=== PATIENT | female | born 1965 | race Caucasian/White ===

== ENCOUNTER 2022-05-30 20:14 | Emergency (ER) | payer OTHER ==
[~2022-05-30] VITALS: Ht 167.6 cm; Wt 69.0 kg
[2022-05-30 20:51] LABS: BASOPHILS ABSOLUTE AUTO 0.06 K/mm3 (0.00-0.23); BASOPHILS PERCENT AUTO 1 % (0-2); EOSINOPHILS ABSOLUTE AUTO 0.14 K/mm3 (0.00-0.68); EOSINOPHILS PERCENT AUTO 2 % (0-6); Hematocrit 36.5 % (33.0-51.0); Hemoglobin 12.5 g/dL (11.5-16.0); IMMATURE GRAN ABSOLUTE AUTO 0.02 K/mm3 (0.00-0.10); IMMATURE GRAN PERCENT AUTO 0 % (0-1); LYMPHOCYTES ABSOLUTE AUTO 3.83 K/mm3 (0.84-5.20); LYMPHOCYTES PERCENT AUTO 43 % (21-46); MONOCYTES ABSOLUTE AUTO 0.63 K/mm3 (0.16-1.47); MONOCYTES PERCENT AUTO 7 % (4-13); Mean Corpuscular HGB 30.4 pg (26.0-34.0); Mean Corpuscular HGB Conc 34.2 g/dL (31.5-36.5); Mean Corpuscular Volume 89 fL (80-100); Mean Platelet Volume 11.2 fL (9.1-12.4); NEUTROPHILS ABSOLUTE AUTO 4.16 K/mm3 (1.96-9.15); NEUTROPHILS PERCENT AUTO 47 % (41-73); Platelet Count 224 K/mm3 (150-400); RDW Coefficient Variation 13.1 % (11.7-14.2); RDW Standard Deviation 43.2 fL (35.1-46.3); Red Blood Cell Count 4.11 M/mm3 (3.80-5.20); White Blood Cell Count 8.84 K/mm3 (4.00-11.30)
[2022-05-30 21:09] LABS: Albumin, Blood 4.2 g/dL (3.4-5.0); Albumin/Globulin Ratio 1.3 (0.8-1.8); Bilirubin, Total 0.4 mg/dL (0.1-1.0); Bun/Creatinine Ratio 9.7 (12.0-20.0); Calcium, Blood 9.2 mg/dL (8.5-10.1); Creatinine, Blood 0.93 mg/dL (0.40-1.00); Globulin, Blood 3.3 g/dL (2.2-4.0); Potassium, Blood 3.1 mmol/L (3.5-5.5); Total Protein, Blood 7.5 g/dL (6.4-8.2)
== END 2022-05-30 22:37 | disposition home or self-care (01) ==
LOC: ER 20:14
PROVIDERS: Student in an Organized Health Care Education/Training Program
DX: N83.202 Unspecified ovarian cyst, left side (principal)
CPT/HCPCS: 36415; 76830; 76856; 80053; 83690; 85025; 96374; 96375; 99284-25; A9270; J1170; J2405; J7030

== ENCOUNTER 2022-06-13 12:30 | Day surgery (SDC) | payer OTHER ==
[~2022-06-13] VITALS: Ht 167.6 cm; Wt 74.2 kg
[~2022-06-13 12:30] MED LIST: GABA300 PO; HYDACE10B PO; TIZA4 PO
--- NOTE | 2022-06-13 17:32 | NUR ---
1700 TO ROOM FROM PACU, PT ASSISTED TO BATHROOM AND VOIDED CLEAR YELLOW URINE. PT REPORTS HAS FEELING OF PRESSURE IN RECTAL AND VAGINAL AREA BUT STATES NOT PAIN. ABD LAP SITES X4 WITH WOUND GLUE INTACT. NO DRAINAGE. PT DENIES NAUSEA. LUNGS CLEAR, NO SOB
[2022-06-13] MEDS ORDERED: ACET325 PO (18:31)
[2022-06-13] MEDS ORDERED: IBUP800 PO (18:32)
[2022-06-13] MEDS ORDERED: DOCU100 PO (18:36)
--- NOTE | 2022-06-13 22:24 | NUR ---
DISCHARGE PT HAS VOIDED MULTIPLE TIMES, CLEAR PINK TINGED URINE. PAIN AND NAUSEA CONTROLLED WITH ORDERED MEDICATIONS. TOLERATING PO AND AMBULATING INDEPENDENTLY. PROVIDED WITH DISCHARGE INSTRUCTION R/T HYSTERECTOMY. 2 IV'S REMOVED FROM R ARM PRIOR TO DISCHARGE. PT ESCORTED BY WHEELCHAIR BY DEBBIE SANTACRUZ OUT TO PT'S CAR. TO DRIVE PT HOME.
== END 2022-06-13 22:25 | disposition home or self-care (01) ==
LOC: ORSCMMR 12:30 → ORD 14:00 → ORSCMMR 14:00 → SURS 16:52 → ORSCMMR 22:25
PROVIDERS: Obstetrics & Gynecology
PROC: 8E0W4CZ Robotic Assisted Procedure of Trunk Region, Percutaneous Endoscopic Approach (ICD-10-PCS; principal; 2022-06-13 14:00)
PROC: 0UT74ZZ Resection of Bilateral Fallopian Tubes, Percutaneous Endoscopic Approach (ICD-10-PCS; principal; 2022-06-13 14:00)
PROC: 0UT94ZZ Resection of Uterus, Percutaneous Endoscopic Approach (ICD-10-PCS; principal; 2022-06-13 14:00)
PROC: 0UB24ZZ Excision of Bilateral Ovaries, Percutaneous Endoscopic Approach (ICD-10-PCS; principal; 2022-06-13 14:00)
DX: D27.1 Benign neoplasm of left ovary (principal); D26.0 Other benign neoplasm of cervix uteri; N81.2 Incomplete uterovaginal prolapse; D25.9 Leiomyoma of uterus, unspecified; D26.1 Other benign neoplasm of corpus uteri; N73.6 Female pelvic peritoneal adhesions (postinfective)
CPT/HCPCS: 58571; S2900; 86850; 86900; 86901; 88108; 88307; A9270; J0690; J1100; J1170; J1885; J2250; J2405; J2704; J2795; J3010; J7120